=== PATIENT | female | born 1985 | race Caucasian/White ===

== ENCOUNTER 2024-08-10 15:05 | Emergency (ER) | payer SELFPAY ==
[~2024-08-10] VITALS: Ht 160 cm; Wt 65.0 kg
[2024-08-10 15:26] VITALS: BP 117/71; PULSE 74; RESP 16; TEMP 98; O2SAT 98
== END 2024-08-10 18:43 | disposition left against medical advice (07) ==
LOC: ER 15:05
DX: S61.451A Open bite of right hand, initial encounter (principal); Z53.21 Procedure and treatment not carried out due to patient leaving prior to being seen by health care provider; W54.0XXA Bitten by dog, initial encounter; Y93.89 Activity, other specified; Y92.89 Other specified places as the place of occurrence of the external cause; Y99.8 Other external cause status